=== PATIENT | male | born 1985 | race African-American/Black ===

== ENCOUNTER 2023-12-18 17:06 | Emergency (ER) | payer SELFPAY ==
[2023-12-18 17:09] VITALS: BP 178/86
[2023-12-18 17:23] LABS: % Basophils 0.6 % (0-2); % Eosinophils 2.8 % (0-6); % Immature Granulocytes 0.2 % (0-0.5); % Monocytes 11.3 % (1.7-9.3); % Neutrophils 49.1 % (42.2-75.2); Absolute Eosinophils 0.1 10^3/uL (0-0.7); Absolute Lymphocytes 1.8 10^3/uL (1.2-3.4); Absolute Monocytes 0.6 10^3/uL (0.1-0.6); Absolute Neutrophils 2.4 10^3/uL (1.4-6.5); Hematocrit 41.3 % (39.0-52.0); Hemoglobin 13.5 g/dL (13.0-18.0); Mean Corp Hgb Conc. 32.7 g/dL (33.0-37.0); Mean Corpuscular Hgb 26.8 pg (27.0-31.0); Mean Corpuscular Volume 81.9 fL (80.0-94.0); Mean Platelet Volume 9.1 fL (7.4-10.4); Nucleated Red Blood Cells % 0 % (-); Platelet Count 268 10^3/uL (130-400); Red Blood Cell Count 5.04 10^6/uL (4.70-6.10); Red Cell Dist. Width 15.1 % (11.5-14.5)
[2023-12-18 17:30] LABS: Urine Albumin Negative (Neg - Trace); Urine Bilirubin Negative (Negative); Urine Character Clear (Clear); Urine Color Yellow; Urine Glucose Negative (Negative); Urine Ketone Negative (Negative); Urine Leukocyte Trace (Negative); Urine Nitrite Negative (Negative); Urine Occult Blood Negative (Negative); Urine Specific Gravity 1.005 (<1.030); Urine Urobilinogen Negative (Neg - 1+)
[2023-12-18 17:39] LABS: Urine Red Blood Cell None Seen /HPF (0-2); Urine Squamous Cell 0-2 /LPF (Few); Urine White Cell 0-2 /HPF (0-5)
[2023-12-18 17:47] LABS: ALT (SGPT) 21 U/L (0-50); AST (SGOT) 22 U/L (17-59); Albumin 3.7 g/dl (3.5-5.0); Alkaline Phosphatase 67 U/L (38-126); Blood Urea Nitrogen 9 mg/dl (9-20); Calcium 9.2 mg/dl (8.4-10.2); Carbon Dioxide 28 mmol/L (22-30); Chloride 101 mmol/L (98-107); Glucose 89 mg/dl (70-99); Potassium 4.3 mmol/L (3.5-5.1); Sodium 136 mmol/L (135-145); Total Bilirubin 0.7 mg/dl (0.2-1.3); Total Protein 6.5 g/dl (6.3-8.2); eGFR > 60.00
[2023-12-18 17:48] LABS: Lipase 140 U/L (23-300)
--- NOTE | 2023-12-18 18:23 | ED.GENMED ---
History of Present Illness
General
Chief Complaint: Abdominal Symptoms
Source: patient
Exam Limitations: none
Time Seen by Provider: 12/18/23 17:56
Travel History
Have you had any contact with someone who has COVID-19?: No
Do you have any symptoms of coronavirus? Fever > 100 degrees, chills, cough, shortness of breath, sore throat, loss of taste or smell, muscle aches, or headache?: No
History of Present Illness
History of Present Illness:
This is a 38 year old male that comes in with c/o lower abd pain for the past few months. States that he also has testicular pain that was on the left but today the pain was on the right. States that he talked with is Chiropractor as he thought this
could be a hernia but he was told that it is not. Denies any fever, chills, chest pain, SOB, nausea, vomiting, diarrhea, headache, dizziness, urinary burning .
Past History
Past History
ED Past Medical History: None; Negative Asthma, HTN, Hypercholesterolemia or NIDDM
ED Past Surgical History: Orthopedic (Right shoulder surgery)
Social History
Tobacco: Non-smoker
Alcohol: Occasional
Personal: Single
Living: with family
Review of Systems
Review of Systems
All Other Systems: ROS reviewed and negative except as documented in HPI and ROS
Constitutional: Reports no symptoms; Denies fever or chills
EENT: Reports no symptoms
Respiratory: Reports no symptoms; Denies cough
Cardiac: Reports no symptoms; Denies chest pain or palpitations
ABD/GI: Reports abdominal pain; Denies nausea, vomiting or diarrhea
: Reports other (Bilateral testicular pain); Denies dysuria, frequency or urgency
Musculoskeletal: Reports no symptoms
Skin: Reports no symptoms
Neurological: Reports no symptoms; Denies dizzy or headache
Psychiatric: Reports no symptoms
Phy Exam
General Physical Exam
General Presentation: no apparent distress
General age: appears stated age
General Skin: warm and dry
General Habitus: normal
General Mental: alert
General Hydration: appears well hydrated
ENT Exam
ENT Exam: TM's normal, pharynx normal and neck supple
Eye Exam
Eye Exam: EOMI
Cardiovascular Exam
Cardiovascular Exam: regular rate/rhythm, no edema, no murmur and normal peripheral pulses
Pulmonary Exam
Pulmonary Exam: lungs clear, no respiratory distress, no rales, chest non tender, no crackles, no rhonchi, no wheezing and no cough
Gastrointestinal Exam
Gastrointestinal Exam: normal bowel sounds, soft, no organomegaly, no pulsatile mass, non distended and tender (lower abd tenderness with palpation)
Genitourinary Exam Male
Exam Male: circumcised, no discharge, no evidence of trauma, no lesions, no testicular swelling and other (Bilateral testicular tenderness with palpation. L>R)
Musculoskeletal Exam
Musculoskeletal Exam: full ROM and no edema
Skin Exam
Skin Exam: normal color, warm/dry, no rash and no petechia
Psychiatric Exam
Psychiatric Exam: normal mood/affect
Course
Orders/Labs/Results
Orders:
Orders
12/18/23 17:17
Complete Blood Count/With Diff Urgent
Comprehensive Metabolic Panel Urgent
Lipase Urgent
12/18/23 17:21
Urinalysis Reflex To Culture Urgent
Date Specimen was Collected: 12/18/23
Time Specimen was Collected: 17:13
Urine Microscopic Reflex Cult Urgent
12/18/23 18:22
0.9% Sodium Chloride 1000 ml [Nss] 1,000 ml IV BOLUS
Scrotum US [US Scrotum] Urgent
Comment:
Reason For Exam: Bilateral testicular pain. L>R
12/18/23 18:23
CT Abd/pelvis W Iv Cont Urgent
Comment:
Reason For Exam: Lower abd pain
Abnormal Lab Results
12/18/23 12/18/23
17:17 17:21
MCH 26.8 L pg
(27.0-31.0)
MCHC 32.7 L g/dL
(33.0-37.0)
RDW 15.1 H %
(11.5-14.5)
Monocytes % 11.3 H %
(1.7-9.3)
Leukocyte Esterase Rfl Trace A
(Negative)
12/18/23 17:17
12/18/23 17:17
Labs unremarkable. Urine negative for infection. Lipase normal at 140
Vital Signs
Initial and Last Documented VS:
Initial Vital Signs
Temp Pulse Resp BP Pulse Ox
98.0 F 60 16 178/86 98
12/18/23 17:09 12/18/23 17:09 12/18/23 17:09 12/18/23 17:09 12/18/23 17:09
Last Documented Vital Signs
Temp Pulse Resp BP Pulse Ox
98.0 F 60 16 178/86 98
12/18/23 17:09 12/18/23 17:09 12/18/23 17:09 12/18/23 17:09 12/18/23 17:09
MDM/Problems Addressed
Differential Diagnosis Includes:
epididymitis, UTI,
MDM/Problems Addressed:
This is a 38 year old male that comes in with c/o lower abd pain and testicular pain. State that he has had pain in the left testicle and lower abd pain for a few months. Then today he started with pain in the right testicle also.
Will check labs, US scrotum and get CT of the abd pelvis.
Back into see patient. Reviewed labs, US and CT scan. Will have patient use Tylenol or Ibuprofen for pain. A urine GC and Chlamydia was added on. Explained to patient that if this would come back positive he would be called. If he continues with
discomfort he will need to follow up with the Urologist. Patient to return with any concerns.
Chronic conditions affecting care:
NA
Acute Exacerbation and/or Progression of Chronic Illness:
NA
*Radiology
Radiology exam reviewed: radiology read reviewed (US=No findings to suggest bilateral testicular torsion. Likely small bilateral varicoceles left slightly greater then right. CT=Slightly prominent gallbladder without gross focal intrinsic
abnormality without biliary tract dilation. There is clinical symptomatology referable to the right upper ), all reviewed NAD by ED Provider (CT cont- quadrant, Abdominal ultrasound would be suggested. Small umbilical hernia containing unremarkable
loops of small bowel. No intestinal obstruction or free air. Large volume stool in the rectosigmoid colon. At least relative diffuse wall thickening of the urinary bladder most likely due to) and other (CT cont- underdistention. Other etiology such
as cystitis cannot be excluded. Suggest correlation with urinalysis. )
*Pulse Oximetry
Patient hypoxic: no
*EKG
Interpreted by ED Provider?: NA
Rate: EKG- N/A
*[employer] Interpretation
Rate: [employer]- N/A
*Critical Care Note
Total Time (30-74mins, 75-104mins- exclusive of procedures): Not Applicable
ED Attending Note
-
Portions of this chart may have been created with voice recognition software.� Occasional wrong word or��sound alike� substitutions may have occurred due to the inherent limitations of voice recognition software.
Discharge Plan
Departure
Patient Disposition: Home (Routine Discharge)
Date of Disposition: 12/18/23
Time of Disposition: 21:27
Patient with high blood pressure during this ER visit?: Yes
Condition: Good
Covid-19: Not Applicable
Discharge Problem:
Pain in both testicles, Lower abdominal pain
Instructions: Abdominal Pain, BLOOD PRESSURE
Referrals:
William Castaneda MD [Active] - As needed
NONE,* [Family Provider] -
Activity Restrictions/Additional Instructions:
As discussed, your blood work is normal. Your Ultrasound is negative for any acute process of the scrotum. Your CT shows that you have a small umbilical hernia but there is no obstruction of the bowel or inflammatory process. YOU NEED TO GET A
FAMILY DOCTOR FOR FOLLOW UP. You have also been given the name of a Urologist for follow up if you continue with testicular pain. You urine has been sent to test for GC and Chlamydia. If this comes back positive you will be called and started on
antibiotic. You may use Tylenol 1000mg every 6 hours for pain and Ibuprofen 600mg every 6 hours with food for pain. IF YOU HAVE ANY OTHER CONCERNS PLEASE RETURN TO THE EMERGENCY ROOM.
Interventions
Interventions:
*Risk Screen - Suicide Last Done: 12/18/23 20:31
*General Assessment Last Done: 12/18/23 20:31
*Neglect/Abuse Screening Last Done: 12/18/23 20:31
ED- Fall Risk Assessment Last Done: 12/18/23 20:34
*ED COVID-19 Vaccine History Last Done: 12/18/23 17:09
CX-Lkahhq-Ovfhlkvhpb Assessment Last Done: 12/18/23 20:34
[2023-12-18 20:31] VITALS: BMI 29.2
[2023-12-18] MEDS: NSS 1000 IV (20:31)
== END 2023-12-18 21:46 | disposition home or self-care (01) ==
LOC: EMR 17:06
PROVIDERS: Emergency Medicine; EMERGENCY PHYSICIAN Emergency Medicine
DX: N50.812 Left testicular pain (principal); N50.811 Right testicular pain; R10.30 Lower abdominal pain, unspecified
CPT/HCPCS: 99284; 96360; 74177; 76870; 80053; 81003; 81015; 83690; 85025; 87491; 87591; 93976; Q9967